=== PATIENT | male | born 1950 ===

== ENCOUNTER 2018-11-27 18:53 | Inpatient (IN) | payer MEDICARE, OTHER ==
[2018-11-27 18:54] VITALS: BMI 22.6
[2018-11-27] MEDS ORDERED: Vancomycin 1 g Inj ONE (20:41)
[2018-11-27] MEDS ORDERED: Piperacillin/Tazobact 4.5 GM in Sodium Chloride 0.9% 100 ML IV STA (20:45)
[2018-11-27 21:26] LABS: ALB/GLOB RATIO 1.3 (1.0-2.1); ALBUMIN 4.1 g/dL (3.5-5.0); ALT/SGPT 19 U/L (21-72); AST/SGOT 26 U/L (17-59); BLOOD UREA NITROGEN 13 mg/dl (9-20); CALCIUM 9.8 mg/dL (8.4-10.2); GFR NON-AFRICAN AMERICAN > 60
--- NOTE | 2018-11-27 21:29 | ED PDOC ---
Lower Extremity Pain/Injury Time Seen by Provider: 11/27/18 19:55 Chief Complaint (Nursing): Lower Extremity Problem/Injury Chief Complaint (Provider): Lower Extremity Problem/Injury History Per: Patient History/Exam Limitations: no limitations Onset/Duration Of Symptoms: Days (x5) Current Symptoms Are (Timing): Still Present Additional Complaint(s): 68 year old male with a history of hypertension and peripheral artery disease presents to the ED with right foot swelling and redness onset x5 days. Patient reports symptoms have been worsening since onset. A week ago, he had a fluid filled blister on his medial heel, which he popped open. Patient also developed blister with fluid on the plantar forefoot in the past x2 days. He denies any fever, chills, or injury. Patient has a left aka, which was due to his peripheral artery disease. He was seen by his PMD today who advised him to come to the ED for further evaluation. PMD: Dr. Squires Past Medical History Reviewed: Historical Data, Nursing Documentation, Vital Signs Vital Signs: Last Vital Signs Temp 98.8 F 11/27/18 19:43 Pulse 100 H 11/27/18 19:43 Resp 18 11/27/18 19:43 BP 120/50 L 11/27/18 19:43 Pulse Ox 99 11/27/18 19:43 - Medical History PMH: Anemia, Bronchitis, COPD, Emphysema, HTN Denies: Atrial Fibrillation, CAD Other PMH: peripheral artery disease, left aka, bowel obstruction - Surgical History Surgical History: - Family History Family History: States: Unknown Family Hx - Social History Current smoker - smoking cessation education provided: No - Home Medications Home Medications: Ambulatory Orders Medication Instructions Recorded Clopidogrel [Plavix] 75 mg PO DAILY 01/20/15 Cilostazol [Pletal] 100 mg PO BID 04/02/16 Ferrous Sulfate [Feosol] 325 mg PO DAILY 05/06/16 Lisinopril [Zestril] 5 mg PO DAILY 05/06/16 Metoprolol Succinate XL [Toprol XL] 25 mg PO DAILY 05/06/16 Aspirin [Ecotrin] 81 mg PO DAILY 10/17/18 Famotidine [Pepcid] 20 mg PO BID 10/17/18 Nortriptyline [Pamelor] 10 mg PO HS 10/17/18 Gabapentin [Neurontin] 300 mg PO BID 11/27/18 - Allergies Allergies/Adverse Reactions: Allergies Allergy/AdvReac Type Severity Reaction Status Date / Time No Known Allergies Allergy Verified 10/17/18 11:13 Review of Systems ROS Statement: Except As Marked, All Systems Reviewed And Found Negative Constitutional: Negative for: Fever, Chills Musculoskeletal: Positive for: Other (right foot swelling and redness with blisters) Physical Exam - Reviewed Nursing Documentation Reviewed: Yes Vital Signs Reviewed: Yes - Physical Exam Appears: Positive for: No Acute Distress Head Exam: Positive for: ATRAUMATIC, NORMOCEPHALIC Skin: Positive for: Warm, Dry Eye Exam: Positive for: EOMI, PERRL ENT: Negative for: Pharyngeal Erythema, Tonsillar Exudate Neck: Positive for: Painless ROM, Supple Cardiovascular/Chest: Positive for: Regular Rate, Rhythm. Negative for: Murmur Respiratory: Positive for: Normal Breath Sounds. Negative for: Respiratory Distress Gastrointestinal/Abdominal: Positive for: Soft. Negative for: Tenderness Back: Positive for: Normal Inspection. Negative for: Decreased ROM Extremity: Positive for: Capillary Refill (less than 2 seconds), Other (Right foot: dorsum for forefoot demonstrates dark erythema extending from the 3rd, 4th, and 5th digists with diffuse edema; plantar forefoot demonstrates large yellow callus with pin point area expressing serosanguinous fluid; dried healed blister to medial heel; light touch intact ) Lymphatic: Negative for: Adenopathy Neurological/Psych: Positive for: Awake, Alert. Negative for: Motor/Sensory Deficits - Laboratory Results Result Diagrams: 11/27/18 21:09 11/27/18 21:09 Lab Results: Total Bilirubin 0.3 mg/dl (0.2-1.3) 11/27/18 21:09 AST 26 U/L (17-59) 11/27/18 21:09 ALT 19 U/L (21-72) L D 11/27/18 21:09 Alkaline Phosphatase 80 U/L (38-126) 11/27/18 21:09 Total Protein 7.2 G/DL (6.3-8.2) 11/27/18 21:09 Albumin 4.1 g/dL (3.5-5.0) 11/27/18 21:09 Globulin 3.2 gm/dL (2.2-3.9) 11/27/18 21:09 Albumin/Globulin Ratio 1.3 (1.0-2.1) 11/27/18 21:09 - ECG O2 Sat by Pulse Oximetry: 99 (RA) Pulse Ox Interpretation: Normal Medical Decision Making Medical Decision Making: Time: 2017 Impression: right foot infection Differential diagnoses include but are not limited to: cellulitis, osteomyelitis, peripheral artery occlusion, and sepsis --Discussed with ELYSE Maxwell. Patient to be admitted for IV antibiotics. Case discussed with podiatry resident, orders placed as per discussion. 22:50 US DVT RLE FINDINGS: DEEP VEINS: The common femoral, superficial femoral, and popliteal veins are echolucent and compressible. There is normal color Doppler flow throughout. The visualized calf veins appear patent. SUPERFICIAL VEINS: The visualized greater saphenous vein is patent. SOFT TISSUES: No popliteal fossa cyst or other abnormalities. IMPRESSION: No deep venous thrombosis evident on right lower extremity examination. 22:51 CT right foot FINDINGS: BONES: No acute fracture is evident. No aggressive appearing osseous lesion. No periosteal reaction evident. A 4.5 mm calcaneal spur is noted arising from the plantar aspect. JOINTS: The joint spaces appear within normal limits. No dislocation. SOFT TISSUES: No radiopaque foreign body is seen. No soft tissue fluid collection. No subcutaneous gas collection identified. IMPRESSION: 1. 4.5 mm calcaneal spur. 2. No acute abnormality evident on examination of the right foot. 22:51 CT right leg FINDINGS: BONES: No acute fracture is evident. No aggressive appearing osseous lesion. No periosteal reaction evident. JOINTS: The joint spaces appear within normal limits. No dislocation. SOFT TISSUES: No radiopaque foreign body is seen. No soft tissue fluid collection. No subcutaneous gas detected. IMPRESSION: No acute abnormality evident on examination of the right tibia and fibula. 23:06 US RLE Arterial COMMENTS: At the right BLOCK STACKER level systolic velocities are 123.2 cm/sec with bilateral waveform. At the right SFA level systolic velocities are 74.2 cm/sec at proximal segment, 66.9 cm/sec at mid segment and 98.1 cm/sec at distal segment with monophasic waveform. At the right POP level systolic velocities are 51.5 cm/sec with monophasic waveform. At the right RV SERVICER level systolic velocities are 59.2 cm/sec with monophasic waveform. At the right CORNELIUS level systolic velocities are 71 cm/sec with monophasic wav eform. The right dorsalis pedis artery is not visualized due to wound bandage. IMPRESSION: No evidence of hemodynamically significant stenosis. Scribe Attestation: Documented by Coby Cabrera, acting as a scribe for Rosario Rutherford MD. Provider Scribe Attestation: All medical record entries made by the Scribe were at my direction and personally dictated by me. I have reviewed the chart and agree that the record accurately reflects my personal performance of the history, physical exam, me dical decision making, and the department course for this patient. I have also personally directed, reviewed, and agree with the discharge instructions and disposition. Disposition - Clinical Impression Clinical Impression: PVD (peripheral vascular disease) with claudication, Cellulitis of right foot - Disposition Disposition Time: 21:00 Condition: FAIR - POA Present On Arrival: None
[2018-11-27 21:30] LABS: BASO % 0.6 % (0.0-2.0); EOS # 0.1 K/uL (0.0-0.7); EOS % 1.3 % (0.0-4.0); HEMOGLOBIN 15.9 g/dL (12.0-18.0); LYMPH # 1.6 K/uL (1.0-4.3); LYMPH % 18.1 % (20.0-40.0); MEAN CELL VOLUME 95.2 fl (80.0-94.0); MEAN CORPUSCULAR HEMOGLOBIN 31.6 pg (27.0-31.0); MEAN CORPUSCULAR HGB CONC 33.2 g/dL (33.0-37.0); MEAN PLATELET VOLUME 9.1 fl (7.2-11.7); MONO # 0.8 K/uL (0.0-0.8); NEUT # 6.3 K/uL (1.8-7.0); RBC 5.03 Mil/uL (4.40-5.90); RED CELL DISTRIBUTION WIDTH 14.7 % (11.5-14.5); WHITE BLOOD COUNT 8.9 K/uL (4.8-10.8)
[2018-11-27 21:33] LABS: PROTHROMBIN TIME 10.9 Seconds (9.8-13.1)
[2018-11-27 21:35] LABS: PARTIAL THROMBOPLASTIN TIME 33.3 Seconds (25.6-37.1)
--- NOTE | 2018-11-27 22:15 | CP.PCM.CON ---
History of Present Illness - History of Present Illness History of Present Illness: Podiatry consult note for attending Dr Goetz: 68 y/o M w/ PMHx of HTN, duodenal ulcers, AKA RLE, PVD, COPD, SBO referred to ED from Dr. Squires for right foot infection, cellulitis and abscess. Patient states that a month ago he developed blister on the side of his right heel and the bottom of his right foot. He states that it started to get painful specially the one underneath his foot. He states that today he started to note redness at the 2nd, 3rd and 4th right toes. Patient denies any trauma to his right foot. He can't recall stepping on any foreign body. Patient denies any recent fever, chills, headache, chest pain, SOB, urinary/bowel changes, numbness or tingling in his right LE. PMHx: HTN, duodenal ulcers, left AKA, PVD, COPD, SBO PSH: Left AKA, Left inguinal hernia repair, ANGIOGRAMS. STENT RIGHT LEG. LEFT NECK surgery. Allergies: NKDA Social: Tobacco smoker 5 cigarettes/day,denies EtOH/illicit drugs use. Review of Systems - Review of Systems Review of Systems: As Per HPI - Constitutional Constitutional: As Per HPI Past Patient History - Infectious Disease Hx of Infectious Diseases: None - Tetanus Immunizations Tetanus Immunization: Unknown - Past Medical History & Family History Past Medical History?: Yes - Past Social History Smoking Status: Former Smoker - CARDIAC Hx Atrial Fibrillation: No Hx Hypertension: Yes - PULMONARY Hx Bronchitis: Yes Hx Chronic Obstructive Pulmonary Disease (COPD): Yes Hx Emphysema: Yes - HEMATOLOGICAL/ONCOLOGICAL Hx Anemia: Yes - INTEGUMENTARY Hx Dermatological Problems: Yes Other/Comment: LIPOMA POSTERIOR NECK - GASTROINTESTINAL Hx Ulcer: Yes - SURGICAL HISTORY Other/Comment: ANGIOGRAMS. STENT RIGHT LEG - ANESTHESIA Hx Anesthesia: Yes Hx Anesthesia Reactions: No Hx Malignant Hyperthermia: No Meds Allergies/Adverse Reactions: Allergies Allergy/AdvReac Type Severity Reaction Status Date / Time No Known Allergies Allergy Verified 10/17/18 11:13 Physical Exam - Constitutional Appears: Well, No Acute Distress - Head Exam Head Exam: ATRAUMATIC, NORMOCEPHALIC - Extremities Exam Additional comments: Right lower extremity focused exam: Left AKA Vascular: DP 1/4, PT 2/4 , Cap refill < 3 seconds to all digits, Temp gradient warm to warm from proximal to distal, Mild non pitting edema noted to the right forefoot. Neuro: Gross sensation intact. Derm: A blister noted submet 3 and 4 draining pus with positive malodor after deroofing of the blister an ulcer noted measuring 1.8 cm X 1.0 cm X 0.1 cm. Base is granular fibrotic. Positive purulent malodorous drainage noted. No tracking, No undermining, No probe to bone. Positive riccardo-ulcerative erythema noted. Another blister noted on the medial side of the heel, intact. After deroofing of the blister an ulcer noted measuring 1.0 cm X 0.6 cm X 0.1 cm. Base is granular fibrotic. Mild positive purulent malodorous drainage noted. No tracking, No undermining, No probe to bone. Positive riccardo-ulcerative erythema noted. MSK: Muscle power 5/5 to all groups, Pain noted on palpating the plantar riccardo- ulcerative areas. - Neurological Exam Neurological exam: Alert, Oriented x3 - Psychiatric Exam Psychiatric exam: Normal Affect, Normal Mood Results - Vital Signs Recent Vital Signs: Last Vital Signs Temp 98.8 F 11/27/18 19:43 Pulse 100 H 11/27/18 19:43 Resp 18 11/27/18 19:43 BP 120/50 L 11/27/18 19:43 Pulse Ox 99 11/27/18 21:32 - Labs Result Diagrams: 11/27/18 21:09 11/27/18 21:09 Labs: Laboratory Results - last 24 hr 11/27/18 11/27/18 11/27/18 20:21 21:09 21:09 WBC 8.9 RBC 5.03 Hgb 15.9 Hct 47.9 MCV 95.2 H D MCH 31.6 H MCHC 33.2 RDW 14.7 H Plt Count 189 D MPV 9.1 Neut % (Auto) 71.0 Lymph % (Auto) 18.1 L [place] % (Auto) 9.0 Eos % (Auto) 1.3 Baso % (Auto) 0.6 Neut # (Auto) 6.3 Lymph # (Auto) 1.6 [place] # (Auto) 0.8 Eos # (Auto) 0.1 Baso # (Auto) 0.0 PT INR APTT Sodium 141 Potassium 3.9 Chloride 100 Carbon Dioxide 27 Anion Gap 18 BUN 13 Creatinine 1.0 Est GFR ( Amer) > 60 Est GFR (Non-Af Amer) > 60 POC Glucose (mg/dL) 105 Random Glucose 83 Lactic Acid Calcium 9.8 Total Bilirubin 0.3 AST 26 ALT 19 L D Alkaline Phosphatase 80 Total Protein 7.2 Albumin 4.1 Globulin 3.2 Albumin/Globulin Ratio 1.3 11/27/18 11/27/18 21:09 21:11 WBC RBC Hgb Hct MCV MCH MCHC RDW Plt Count MPV Neut % (Auto) Lymph % (Auto) [place] % (Auto) Eos % (Auto) Baso % (Auto) Neut # (Auto) Lymph # (Auto) [place] # (Auto) Eos # (Auto) Baso # (Auto) PT 10.9 INR 1.0 APTT 33.3 Sodium Potassium Chloride Carbon Dioxide Anion Gap BUN Creatinine Est GFR ( Amer) Est GFR (Non-Af Amer) POC Glucose (mg/dL) Random Glucose Lactic Acid 1.0 Calcium Total Bilirubin AST ALT Alkaline Phosphatase Total Protein Albumin Globulin Albumin/Globulin Ratio Assessment & Plan - Assessment and Plan (Free Text) Assessment: 68 y/o M w/ PMHx of HTN, duodenal ulcers, AKA RLE, PVD, COPD, SBO seen and evaluated in the ED for right foot infection, cellulitis and abscess. Plan: Patient seen and evaluated at the ED. Discussed in detail with Dr. Goetz Charts, labs and vitals reviewed; Afebrile, WBC 8.9. Wound culture collected and sent to lab. ESR/CRP; Pending Right foot 3 views X-ray Ordered R LE VEL/PVR ordered. R LE CT scan; Pending report. B/L LE venous duplex ordered B/L ulcers cleaned with betadine then dressed with bacitracin and DSD Ordered bactroban to be added to the dressing starting tomorrow. Using sterile suture removal kit ulcers deroofed, Plantar ulcer expressed about 2 cc of thick pus. Patient received stat dose of IV abx in the ED Patient will be admitted by Dr Squires. Thank you for the consult. Podiatry will follow up the patient while in house. - Date & Time Date: 11/27/18 Time: 22:26
--- NOTE | 2018-11-28 08:26 | CARD ---
APPROVED REPORT Date of service: 11/27/2018 EKG Measurement Heart [id number] <Conclusion> Sinus bradycardia Possible Left atrial enlargement Borderline ECG
--- NOTE | 2018-11-28 08:58 | CP.PCM.HP ---
<Sonam Glez - Last Filed: 11/28/18 13:36> History of Present Illness - History of Present Illness History of Present Illness: 66yo M w/ PMHx of HTN, PUD, AKA (Left), PVD, COPD, SBO (s/p R hemicolectomy) presents for evaluation of worsening R. foot pain, swelling, and redness for the past 5 days. States it started as a blister which ruptured and since then the swelling and redness has continued to progress. He denies fever/chills, hx of trauma or insect bite. PMD: Dr. Squires Present on Admission - Present on Admission Any Indicators Present on Admission: No History of DVT/PE: No History of Uncontrolled Diabetes: No Urinary Catheter: No Decubitus Ulcer Present: No Past Patient History - Infectious Disease Hx of Infectious Diseases: None - Tetanus Immunizations Tetanus Immunization: Unknown - Past Medical History & Family History Past Medical History?: Yes - Past Social History Smoking Status: cigar - CARDIAC Hx Cardiac Disorders: Yes Hx Atrial Fibrillation: No Hx Hypertension: Yes - PULMONARY Hx Respiratory Disorders: Yes Hx Bronchitis: Yes Hx Chronic Obstructive Pulmonary Disease (COPD): Yes Hx Emphysema: Yes - NEUROLOGICAL Hx Neurological Disorder: No - HEENT Hx HEENT Problems: Yes Other/Comment: wears glasses - RENAL Hx Chronic Kidney Disease: No - ENDOCRINE/METABOLIC Hx Endocrine Disorders: No - HEMATOLOGICAL/ONCOLOGICAL Hx Blood Disorders: Yes Hx Anemia: Yes - INTEGUMENTARY Hx Dermatological Problems: Yes Other/Comment: LIPOMA POSTERIOR NECK - MUSCULOSKELETAL/RHEUMATOLOGICAL Hx Musculoskeletal Disorders: No Hx Falls: No - GASTROINTESTINAL Hx Gastrointestinal Disorders: Yes Hx Ulcer: Yes Other/Comment: Hx SBO - GENITOURINARY/GYNECOLOGICAL Hx Genitourinary Disorders: No - PSYCHIATRIC Hx Psychophysiologic Disorder: No Hx Substance Use: No - SURGICAL HISTORY Hx Surgeries: Yes Other/Comment: ANGIOGRAMS. STENT RIGHT LEG. Neck surgery - ANESTHESIA Hx Anesthesia: Yes Hx Anesthesia Reactions: No Hx Malignant Hyperthermia: No Meds Allergies/Adverse Reactions: Allergies Allergy/AdvReac Type Severity Reaction Status Date / Time No Known Allergies Allergy Verified 10/17/18 11:13 Physical Exam - Constitutional Appears: No Acute Distress - Head Exam Head Exam: NORMAL INSPECTION - Eye Exam Eye Exam: Normal appearance - ENT Exam ENT Exam: Mucous Membranes Moist - Respiratory Exam Respiratory Exam: Clear to Auscultation Bilateral - Cardiovascular Exam Cardiovascular Exam: REGULAR RHYTHM - Extremities Exam Additional comments: R. Foot diffuse erythema on dorsum from 3rd to 4th digit w/ minimal serosang discharge noted. sensation reduced, poor DP pulse +1, capillary refill<2 sec Results - Vital Signs Recent Vital Signs: Last Vital Signs Temp 98.0 F 11/28/18 07:52 Pulse 57 L 11/28/18 07:52 Resp 19 11/28/18 07:52 BP 125/72 11/28/18 07:52 Pulse Ox 97 11/28/18 07:52 - Labs Result Diagrams: 11/27/18 21:09 11/27/18 21:09 Labs: Laboratory Results - last 24 hr 11/27/18 11/27/18 11/27/18 20:21 21:00 21:09 WBC 8.9 RBC 5.03 Hgb 15.9 Hct 47.9 MCV 95.2 H D MCH 31.6 H MCHC 33.2 RDW 14.7 H Plt Count 189 D MPV 9.1 Neut % (Auto) 71.0 Lymph % (Auto) 18.1 L [place] % (Auto) 9.0 Eos % (Auto) 1.3 Baso % (Auto) 0.6 Neut # (Auto) 6.3 Lymph # (Auto) 1.6 [place] # (Auto) 0.8 Eos # (Auto) 0.1 Baso # (Auto) 0.0 ESR 6 PT INR APTT Sodium Potassium Chloride Carbon Dioxide Anion Gap BUN Creatinine Est GFR ( Amer) Est GFR (Non-Af Amer) POC Glucose (mg/dL) 105 Random Glucose Lactic Acid Calcium Total Bilirubin AST ALT Alkaline Phosphatase Total Protein Albumin Globulin Albumin/Globulin Ratio Blood Type O NEGATIVE Antibody Screen Negative BBK History Checked Patient has bt 11/27/18 11/27/18 11/27/18 21:09 21:09 21:11 WBC RBC Hgb Hct MCV MCH MCHC RDW Plt Count MPV Neut % (Auto) Lymph % (Auto) [place] % (Auto) Eos % (Auto) Baso % (Auto) Neut # (Auto) Lymph # (Auto) [place] # (Auto) Eos # (Auto) Baso # (Auto) ESR PT 10.9 INR 1.0 APTT 33.3 Sodium 141 Potassium 3.9 Chloride 100 Carbon Dioxide 27 Anion Gap 18 BUN 13 Creatinine 1.0 Est GFR ( Amer) > 60 Est GFR (Non-Af Amer) > 60 POC Glucose (mg/dL) Random Glucose 83 Lactic Acid 1.0 Calcium 9.8 Total Bilirubin 0.3 AST 26 ALT 19 L D Alkaline Phosphatase 80 Total Protein 7.2 Albumin 4.1 Globulin 3.2 Albumin/Globulin Ratio 1.3 Blood Type Antibody Screen BBK History Checked Assessment & Plan - Assessment and Plan (Free Text) Assessment: 66yo M w/ PMHx of HTN, PUD w/ duodenal ulcers, AKA, PVD, COPD, SBO admitted for R. Foot Cellulitis and abscess. No osteomyelitis on imaging. #R. LE cellulitis/ abscess #PAD - Podiatry, ID, and Vascular consulted - F/u R. LE VEL/PVR and MRI - Vanco & Zosyn - F/u Bcx and Wcx - General Medical conditions managed as ordered Discussed with Dr. Tavia Glez, PGY2 <Colton Squires - Last Filed: 11/28/18 17:53> Results - Vital Signs Recent Vital Signs: Last Vital Signs Temp 97.8 F 11/28/18 16:25 Pulse 57 L 11/28/18 16:25 Resp 18 11/28/18 16:25 BP 112/71 11/28/18 16:25 Pulse Ox 97 11/28/18 16:25 - Labs Result Diagrams: 11/27/18 21:09 11/27/18 21:09 Labs: Laboratory Results - last 24 hr 11/27/18 11/27/18 11/27/18 20:21 21:00 21:09 WBC 8.9 RBC 5.03 Hgb 15.9 Hct 47.9 MCV 95.2 H D MCH 31.6 H MCHC 33.2 RDW 14.7 H Plt Count 189 D MPV 9.1 Neut % (Auto) 71.0 Lymph % (Auto) 18.1 L [place] % (Auto) 9.0 Eos % (Auto) 1.3 Baso % (Auto) 0.6 Neut # (Auto) 6.3 Lymph # (Auto) 1.6 [place] # (Auto) 0.8 Eos # (Auto) 0.1 Baso # (Auto) 0.0 ESR 6 PT INR APTT Sodium Potassium Chloride Carbon Dioxide Anion Gap BUN Creatinine Est GFR ( Amer) Est GFR (Non-Af Amer) POC Glucose (mg/dL) 105 Random Glucose Lactic Acid Calcium Total Bilirubin AST ALT Alkaline Phosphatase C-Reactive Protein Total Protein Albumin Globulin Albumin/Globulin Ratio Blood Type O NEGATIVE Antibody Screen Negative BBK History Checked Patient has bt 11/27/18 11/27/18 11/27/18 21:09 21:09 21:11 WBC RBC Hgb Hct MCV MCH MCHC RDW Plt Count MPV Neut % (Auto) Lymph % (Auto) [place] % (Auto) Eos % (Auto) Baso % (Auto) Neut # (Auto) Lymph # (Auto) [place] # (Auto) Eos # (Auto) Baso # (Auto) ESR PT 10.9 INR 1.0 APTT 33.3 Sodium 141 Potassium 3.9 Chloride 100 Carbon Dioxide 27 Anion Gap 18 BUN 13 Creatinine 1.0 Est GFR ( Amer) > 60 Est GFR (Non-Af Amer) > 60 POC Glucose (mg/dL) Random Glucose 83 Lactic Acid 1.0 Calcium 9.8 Total Bilirubin 0.3 AST 26 ALT 19 L D Alkaline Phosphatase 80 C-Reactive Protein 17.10 H Total Protein 7.2 Albumin 4.1 Globulin 3.2 Albumin/Globulin Ratio 1.3 Blood Type Antibody Screen BBK History Checked
--- NOTE | 2018-11-28 09:15 | RAD ---
Date of service: 11/27/2018 HISTORY: infection COMPARISON: Portable chest 05/06/2016. FINDINGS: LUNGS: No acute airspace disease bilaterally. Trace fibrotic changes right apex once again. PLEURA: No significant pleural effusion identified, no pneumothorax apparent. CARDIOVASCULAR: No aortic atherosclerotic calcification present. Normal cardiac size. No pulmonary vascular congestion. OSSEOUS STRUCTURES: No significant abnormalities. VISUALIZED UPPER ABDOMEN: Normal. OTHER FINDINGS: None. IMPRESSION: No interval acute cardiopulmonary disease appreciated.
[2018-11-28] MEDS: Cilostazol 100 mg Tab UD PO SCH ×2 (09:18→18:11)
--- NOTE | 2018-11-28 09:19 | RAD ---
Date of service: 11/27/2018 PROCEDURE: Right Foot Radiographs. HISTORY: foot infection COMPARISON: None. FINDINGS: BONES: Diffuse osteopenia suggests osteoporosis. No acute fracture or destructive bony lesion identified. JOINTS: No subluxation or dislocation throughout the right foot. However, there is joint space narrowing and articular cortical sclerosis throughout the interphalangeal joints diffusely compatible with degenerative joint disease on a [id number] basis. Lesser similar changes are present at the midfoot articulations diffusely as well as the hindfoot. Minimal plantar calcaneal spur noted. SOFT TISSUES: Normal. OTHER FINDINGS: None. IMPRESSION: No emphysema soft tissue changes or retained radiodense foreign body. No suspicious fatty changes to suggest cellulitis focally. Degenerative joint changes are identified throughout the right foot as discussed above on a [id number] basis. Diffuse osteopenia suggests osteoporosis.
[2018-11-28] MEDS: Metoprolol Succinate 25 mg XL Tab PO SCH (09:20)
--- NOTE | 2018-11-28 10:08 | US ---
Date of service: 11/27/2018 PROCEDURE: Right lower extremity venous duplex Doppler. HISTORY: foot infection and swelling COMPARISON: None available. TECHNIQUE: Common femoral, superficial femoral, popliteal and posterior tibial veins were evaluated. Flow was assessed with color Doppler, compressibility, assessment of phasic flow and augmentation response. FINDINGS: COMMON FEMORAL VEIN: Unremarkable. SUPERFICIAL FEMORAL VEIN: Unremarkable. POPLITEAL VEIN: Unremarkable. POSTERIOR TIBIAL VEIN: Unremarkable. OTHER FINDINGS: None. IMPRESSION: No evidence of deep venous thrombosis in the right lower extremity. Preliminary impression was provided by [employer].
--- NOTE | 2018-11-28 11:24 | CT ---
Date of service: 11/27/2018 PROCEDURE: RIGHT FOOT CT WITHOUT CONTRAST HISTORY: RIGHT foot infection r/o gas nec/fasc COMPARISON: Right foot radiographs 11/27/2018. TECHNIQUE: A volumetric CT acquisition through the right foot was performed without intravenous contrast as requested. Reformatted dataset provided multiple projections by various algorithms. Radiation dose:Total exam DLP = 272.53 mGy-cm. This CT exam was performed using one or more of the following dose reduction techniques: Automated exposure control, adjustment of the mA and/or kV according to patient size, and/or use of iterative reconstruction technique. FINDINGS: Evaluation of soft tissues reveals mild plantar greater than dorsal soft tissue edema also affecting the ankle soft tissues peripherally. No emphysema soft tissue changes are appreciated and no retained radiodense foreign bodies identified either. No fracture or destructive bony lesion is appreciated. There is no definitive periosteal reaction appreciated to favored osteomyelitis or other infectious/inflammatory process local to the osseous elements throughout the right foot. No subluxation or dislocation is identified. IMPRESSION: Limited plantar cellulitis is appreciated more so than at the dorsal right foot soft tissues. No fracture, destructive bony lesion, subluxation or dislocation apparent. No emphysema soft tissue change or retained radiodense foreign body evident. Preliminary report provided by Manjinder, 11/27/2018, 10:51 p.m..
--- NOTE | 2018-11-28 11:31 | CT ---
Date of service: 11/27/2018 PROCEDURE: RIGHT TIBIA FIBULA CT WITHOUT CONTRAST HISTORY: RIGHT tib/fib r/o gas COMPARISON: None available. TECHNIQUE: A volumetric CT acquisition through the right tibia and fibula has been performed without intravenous contrast. Reformatted dataset provided multiple projections using various algorithms. Radiation dose:Total exam DLP = 572.17 mGy-cm. This CT exam was performed using one or more of the following dose reduction techniques: Automated exposure control, adjustment of the mA and/or kV according to patient size, and/or use of iterative reconstruction technique. FINDINGS: No fracture or destructive bony lesions appreciated throughout the right tibia and fibula. There is no periosteal reaction appreciated either. Local soft tissues reflect mild lateral subcutaneous reactive change primarily proximal to mid antral lateral subcutaneous fat. No fluid collection is appreciated or retained radiodense foreign body. Are only borderline similar changes at the medial anterior subcutaneous fat. No related emphysematous changes in the pattern reflects only limited cellulitis. This limited pattern of cellulitis is felt unlikely to reflect fasciitis type pattern however this is a clinical diagnosis and further clinical evaluation is required. Density throughout the muscles is grossly nonfocal. Occasional vascular calcifications are identified posteriorly at the calf level versus muscular calcification. No apparent subluxation or dislocation at the visualized right knee or right ankle. IMPRESSION: Limited anterior and medial cellulitis affecting the upper and mid leg subcutaneous fat without emphysematous change or retained radiodense foreign body. No pertinent bony findings at this time including fracture or destructive bony lesion right leg. Further clinical correlation advised. Preliminary report provided by Manjinder, 11/27/2018, 10:51 p.m..
[2018-11-28] MEDS: Piperacillin/Tazobact 3.375 GM in Sodium Chloride 0.9% 100 ML IVPB SCH ×2 (13:17→18:16)
--- NOTE | 2018-11-28 16:00 | CP.PCM.PN ---
Subjective - Date & Time of Evaluation Date of Evaluation: 11/28/18 Time of Evaluation: 16:00 - Subjective Subjective: Podiatry Progress Note: Dr. Goetz 68 year old male patient seen and evaluated for R foot bullae with cellulitis. Patient resting comfortbaly and in NAD. Patient states that he does not have any pain to his right foot today. Denies nausea/vomiting/fever/chills. Objective - Vital Signs/Intake and Output Vital Signs (last 24 hours): Temp Pulse Resp BP Pulse Ox 98.0 F 57 L 19 125/72 97 11/28/18 07:52 11/28/18 09:20 11/28/18 07:52 11/28/18 09:20 11/28/18 07:52 - Medications Medications: Current Medications Aspirin (Ecotrin) 81 mg PO DAILY [facility] Last Admin: 11/28/18 09:30 Dose: 81 mg Cilostazol (Pletal) 100 mg PO BID [facility] Last Admin: 11/28/18 09:18 Dose: 100 mg Clopidogrel Bisulfate (Plavix) 75 mg PO DAILY [facility] Last Admin: 11/28/18 09:26 Dose: 75 mg Famotidine (Pepcid) 20 mg PO BID [facility] Last Admin: 11/28/18 09:26 Dose: 20 mg Ferrous Sulfate (Feosol) 325 mg PO DAILY [facility] Last Admin: 11/28/18 09:26 Dose: 325 mg Gabapentin (Neurontin) 300 mg PO BID [facility] Last Admin: 11/28/18 09:19 Dose: 300 mg Heparin Sodium (Porcine) (Heparin) 5,000 units SC Q8 [facility]; Protocol Last Admin: 11/28/18 09:19 Dose: 5,000 units Sodium Chloride (Sodium Chloride 0.45%) 1,000 mls @ 70 mls/hr IV .[id number] [facility] Stop: 11/29/18 05:35 Vancomycin HCl 1 gm/ Sodium (Chloride) 250 mls @ 166.667 mls/hr IVPB Q12 [facility]; Protocol Last Admin: 11/28/18 13:14 Dose: 166.667 mls/hr Piperacillin Sod/Tazobactam (Sod 3.375 gm/ Sodium Chloride) 100 mls @ 100 mls/hr IVPB Q8 [facility]; Protocol Last Admin: 11/28/18 13:17 Dose: 100 mls/hr Lisinopril (Zestril) 5 mg PO DAILY [facility] Last Admin: 11/28/18 09:19 Dose: Not Given Metoprolol Succinate (Toprol Xl) 25 mg PO DAILY [facility] Last Admin: 11/28/18 09:20 Dose: Not Given Mupirocin (Bactroban Ointment) 1 applic TOP BID [facility] Nortriptyline HCl (Pamelor) 10 mg PO HS [facility] - Labs Labs: 11/27/18 21:09 11/27/18 21:09 PT 10.9 Seconds (9.8-13.1) 11/27/18 21:09 INR 1.0 11/27/18 21:09 APTT 33.3 Seconds (25.6-37.1) 11/27/18 21:09 - Constitutional Appears: Non-toxic, No Acute Distress - Head Exam Head Exam: ATRAUMATIC, NORMOCEPHALIC - Extremities Exam Additional comments: RLE focused exam, L AKA: Vascular: DP 1/4, PT 2/4 , Cap refill < 3 seconds to all digits, Temp gradient warm to warm from proximal to distal, Mild non pitting edema noted to the right forefoot. Ortho: Muscle power 5/5 to all groups, no pain with calf compression Neuro: Gross sensation intact, protective sensation diminished Derm: Drained bullae appreciated submet 3 and 4 measuring approximately 1.5 x 1.0 x.1 cm. No drainage today, no undermining, no tunneling, no tracking, no probe to bone. No additional lesions noted at this time. - Neurological Exam Neurological Exam: Alert, Awake, Oriented x3 - Psychiatric Exam Psychiatric exam: Normal Affect, Normal Mood Assessment and Plan - Assessment and Plan (Free Text) Assessment: 68M with PMHx of HTN, AKA RLE, PVD, COPD with R foot bullae with cellulitis. Plan: Patient seen and evaluated Discussed in detail with Dr. Goetz Charts, labs and vitals reviewed; Afebrile, WBC 8.9. Wound culture; Pending ESR/CRP; Pending Right foot 3 views X-ray; no emphysema soft tissue changes. Diffuse osteopenia suggests osteoporosis R LE VEL/PVR ordered. R LE CT scan; Anterior and medial cellulitis affecting upper and mid leg subctaneous fat without emphysematous changes. Limited plantar celluilitis is appreicated more so than at the dorsal R foot. No fracture, destructive bony lesion, subluxation or dislocation. R LE venous duplex ordered; no evidence of DVT Foot stable from podiatry standpoint at this time, f/u vasc reccs Local wound care with bactroban Will continue to follow
--- NOTE | 2018-11-28 16:43 | US ---
Date of service: 11/27/2018 PROCEDURE: Duplex ultrasound of the right lower extremity arteries. HISTORY: foot infection and swelling COMPARISON: Bilateral lower extremity arterial ultrasound 06/26/2015. TECHNIQUE: Grayscale and duplex Doppler evaluation of the right common femoral, superficial femoral, popliteal, posterior tibial and dorsalis pedis arteries was performed. FINDINGS: COMMON FEMORAL ARTERY: Patent with triphasic spectral waveform maximal flow velocity of 123.2 cm/s. No significant stenosis. SUPERFICIAL FEMORAL ARTERY: Spontaneous color Doppler blood flow is identified however waveform convert 2 monophasic suggesting severe stenosis primary or collateralized blood flow in the lumen. Maximal flow velocity of 74.2 cm/s. POPLITEAL ARTERY: Spontaneous color Doppler blood flow is identified however waveform convert 2 monophasic suggesting severe stenosis primary or collateralized blood flow in the lumen. Maximal flow velocity of 51.5 cm/s. POSTERIOR TIBIAL ARTERY: Spontaneous color Doppler blood flow is identified however waveform convert 2 monophasic suggesting severe stenosis primary or collateralized blood flow in the lumen. Maximal flow velocity of 59.2 cm/s. ANTERIOR TIBIAL ARTERY: Spontaneous color Doppler blood flow is identified however waveform convert 2 monophasic suggesting severe stenosis primary or collateralized blood flow in the lumen. Maximal flow velocity of 71.0 cm/s. DORSALIS PEDIS ARTERY: Not identified due to overlying bandage material. OTHER FINDINGS: None. IMPRESSION: No significant stenosis right common femoral artery. Arterial disease is seen throughout the remainder of the right lower extremity including right SFA, popliteal and posterior tibial arteries which exhibit monophasic blood flow either primarily or on a collateralized spaces. Although no definite complete occlusion is identified without collateralization, findings reflect a significant worsening of arterial disease at the right lower extremity in the interval. Consider follow-up CT angiography of the right lower extremity for added characterization. Findings discussed with the patient's nurse, nurse Harvey, with written down and read back verification 11/28/2018 4:25 p.m..
[2018-11-28] MEDS: Sodium Chloride 0.45% 1,000 ML IV SCH (21:59)
[2018-11-29] MEDS: Sodium Chloride 0.45% 1,000 ML IV SCH (01:23)
[2018-11-29] MEDS: Piperacillin/Tazobact 3.375 GM in Sodium Chloride 0.9% 100 ML IVPB SCH ×3 (02:15→16:50)
[2018-11-29 07:06] LABS: BASO % 0.6 % (0.0-2.0); EOS # 0.2 K/uL (0.0-0.7); EOS % 2.9 % (0.0-4.0); HEMOGLOBIN 15.2 g/dL (12.0-18.0); LYMPH # 2.6 K/uL (1.0-4.3); LYMPH % 40.6 % (20.0-40.0); MEAN CELL VOLUME 94.8 fl (80.0-94.0); MEAN CORPUSCULAR HGB CONC 33.7 g/dL (33.0-37.0); MEAN PLATELET VOLUME 8.8 fl (7.2-11.7); MONO # 0.5 K/uL (0.0-0.8); MONO % 8.5 % (0.0-10.0); NEUT # 3.1 K/uL (1.8-7.0); NEUT % 47.4 % (50.0-75.0); NRBC % 0.3 % (0.0-0.0); RBC 4.76 Mil/uL (4.40-5.90); RED CELL DISTRIBUTION WIDTH 14.6 % (11.5-14.5); WHITE BLOOD COUNT 6.5 K/uL (4.8-10.8)
--- NOTE | 2018-11-29 07:22 | CP.PCM.PN ---
Subjective - Date & Time of Evaluation Date of Evaluation: 11/29/18 Time of Evaluation: 07:22 - Subjective Subjective: Podiatry Progress Note: Dr. Goetz 68 year old male patient seen and evaluated for R foot bullae with cellulitis; cellulitis improving. Patient resting comfortbaly and in NAD. He denies any pain to his R foot at this time. Denies nausea/vomiting/fever/chills. Objective - Vital Signs/Intake and Output Vital Signs (last 24 hours): Temp Pulse Resp BP Pulse Ox 97.3 F L 54 L 20 114/68 95 11/28/18 23:51 11/28/18 23:51 11/28/18 23:51 11/28/18 23:51 11/28/18 23:51 - Medications Medications: Current Medications Aspirin (Ecotrin) 81 mg PO DAILY [facility] Last Admin: 11/28/18 09:30 Dose: 81 mg Cilostazol (Pletal) 100 mg PO BID [facility] Last Admin: 11/28/18 18:11 Dose: 100 mg Clopidogrel Bisulfate (Plavix) 75 mg PO DAILY [facility] Last Admin: 11/28/18 09:26 Dose: 75 mg Famotidine (Pepcid) 20 mg PO BID [facility] Last Admin: 11/28/18 18:16 Dose: 20 mg Ferrous Sulfate (Feosol) 325 mg PO DAILY [facility] Last Admin: 11/28/18 09:26 Dose: 325 mg Gabapentin (Neurontin) 300 mg PO BID [facility] Last Admin: 11/28/18 18:11 Dose: 300 mg Heparin Sodium (Porcine) (Heparin) 5,000 units SC Q8 [facility]; Protocol Last Admin: 11/29/18 01:15 Dose: 5,000 units Piperacillin Sod/Tazobactam (Sod 3.375 gm/ Sodium Chloride) 100 mls @ 100 mls/hr IVPB Q8 [facility]; Protocol Last Admin: 11/29/18 02:15 Dose: 100 mls/hr Vancomycin HCl 1 gm/ Sodium (Chloride) 250 mls @ 166.667 mls/hr IVPB Q12@0100,1300 [facility]; Protocol Last Admin: 11/29/18 01:14 Dose: 166.667 mls/hr Lisinopril (Zestril) 5 mg PO DAILY [facility] Last Admin: 11/28/18 09:19 Dose: Not Given Metoprolol Succinate (Toprol Xl) 25 mg PO DAILY [facility] Last Admin: 11/28/18 09:20 Dose: Not Given Mupirocin (Bactroban Ointment) 1 applic TOP BID [facility] Last Admin: 11/28/18 18:17 Dose: 1 applic Nortriptyline HCl (Pamelor) 10 mg PO HS [facility] Last Admin: 11/28/18 21:57 Dose: 10 mg - Labs Labs: 11/29/18 06:40 11/27/18 21:09 PT 10.9 Seconds (9.8-13.1) 11/27/18 21:09 INR 1.0 11/27/18 21:09 APTT 33.3 Seconds (25.6-37.1) 11/27/18 21:09 - Constitutional Appears: Non-toxic, No Acute Distress - Head Exam Head Exam: ATRAUMATIC, NORMOCEPHALIC - Extremities Exam Additional comments: RLE focused exam, L AKA: Vascular: DP 1/4, PT 2/4 , Cap refill < 3 seconds to all digits, Temp gradient warm to warm from proximal to distal, Mild non pitting edema noted to the right forefoot. Ortho: Muscle power 5/5 to all groups, no pain with calf compression Neuro: Gross sensation intact, protective sensation diminished Derm: Drained bullae appreciated submet 3 and 4 measuring approximately 1.5 x 1.0 x.1 cm. Additional drained bullae appreciated to heel. No drainage, no undermining, no tunneling, no tracking, no probe to bone. No additional lesions noted at this time. - Neurological Exam Neurological Exam: Alert, Awake, Oriented x3 - Psychiatric Exam Psychiatric exam: Normal Affect, Normal Mood Assessment and Plan - Assessment and Plan (Free Text) Assessment: 68M with PMHx of HTN, AKA RLE, PVD, COPD with R foot bullae with cellulitis; improving. Plan: Patient seen and evaluated Discussed in detail with Dr. Goetz Charts, labs and vitals reviewed; Afebrile, WBC 6.5, ESR 6, CRP 17 Wound culture; Gram + Cocci Right foot 3 views X-ray; no emphysema soft tissue changes. Diffuse osteopenia suggests osteoporosis R LE VEL/PVR; no significant stenosis R common femoral artery. Arterial disease is seen throughout the RLE including SFA. R LE CT scan; Anterior and medial cellulitis affecting upper and mid leg subctaneous fat without emphysematous changes. Limited plantar celluilitis is appreicated more so than at the dorsal R foot. No fracture, destructive bony lesion, subluxation or dislocation. R LE venous duplex ordered; no evidence of DVT LE MRI Local wound care with bactroban Foot stable from podiatry standpoint at this time, no surgical intervention, f/u vasc reccs Will continue to follow
[2018-11-29] MEDS: Metoprolol Succinate 25 mg XL Tab PO SCH (09:07)
[2018-11-29] MEDS: Cilostazol 100 mg Tab UD PO SCH ×2 (09:07→16:45)
--- NOTE | 2018-11-29 11:30 | CP.PCM.PN ---
Subjective - Date & Time of Evaluation Date of Evaluation: 11/29/18 Time of Evaluation: 08:00 - Subjective Subjective: Pt seen and examined at bedside, reports RLE pain improved since yesterday. Denies fever/chills. Objective - Vital Signs/Intake and Output Vital Signs (last 24 hours): Temp Pulse Resp BP Pulse Ox 97.2 F L 57 L 18 116/69 98 11/29/18 08:26 11/29/18 08:26 11/29/18 08:26 11/29/18 08:26 11/29/18 08:26 - Medications Medications: Current Medications Aspirin (Ecotrin) 81 mg PO DAILY [facility] Last Admin: 11/28/18 09:30 Dose: 81 mg Cilostazol (Pletal) 100 mg PO BID [facility] Last Admin: 11/28/18 18:11 Dose: 100 mg Clopidogrel Bisulfate (Plavix) 75 mg PO DAILY [facility] Last Admin: 11/28/18 09:26 Dose: 75 mg Famotidine (Pepcid) 20 mg PO BID [facility] Last Admin: 11/28/18 18:16 Dose: 20 mg Ferrous Sulfate (Feosol) 325 mg PO DAILY [facility] Last Admin: 11/28/18 09:26 Dose: 325 mg Gabapentin (Neurontin) 300 mg PO BID [facility] Last Admin: 11/28/18 18:11 Dose: 300 mg Heparin Sodium (Porcine) (Heparin) 5,000 units SC Q8 [facility]; Protocol Last Admin: 11/29/18 01:15 Dose: 5,000 units Piperacillin Sod/Tazobactam (Sod 3.375 gm/ Sodium Chloride) 100 mls @ 100 mls/hr IVPB Q8 [facility]; Protocol Last Admin: 11/29/18 02:15 Dose: 100 mls/hr Vancomycin HCl 1 gm/ Sodium (Chloride) 250 mls @ 166.667 mls/hr IVPB Q12@0100,1300 [facility]; Protocol Last Admin: 11/29/18 01:14 Dose: 166.667 mls/hr Lisinopril (Zestril) 5 mg PO DAILY [facility] Last Admin: 11/28/18 09:19 Dose: Not Given Metoprolol Succinate (Toprol Xl) 25 mg PO DAILY [facility] Last Admin: 11/28/18 09:20 Dose: Not Given Mupirocin (Bactroban Ointment) 1 applic TOP BID [facility] Last Admin: 11/28/18 18:17 Dose: 1 applic Nortriptyline HCl (Pamelor) 10 mg PO HS [facility] Last Admin: 11/28/18 21:57 Dose: 10 mg - Labs Labs: 11/29/18 06:40 11/27/18 21:09 PT 10.9 Seconds (9.8-13.1) 11/27/18 21:09 INR 1.0 11/27/18 21:09 APTT 33.3 Seconds (25.6-37.1) 11/27/18 21:09 - Constitutional Appears: No Acute Distress - Eye Exam Eye Exam: Normal appearance - Respiratory Exam Respiratory Exam: Clear to Ausculation Bilateral - Cardiovascular Exam Cardiovascular Exam: REGULAR RHYTHM - Extremities Exam Additional comments: RLE wrapped in gauze, DP +2 Assessment and Plan - Assessment and Plan (Free Text) Assessment: 66yo M w/ PMHx of HTN, PUD w/ duodenal ulcers, AKA, PVD, COPD, SBO admitted for R. Foot Cellulitis and abscess. No osteomyelitis on imaging. #R. LE cellulitis/ abscess #PAD - Podiatry, ID, and Vascular consulted - F/u R. LE VEL/PVR and MRI completed. No significant stenosis in arterial circulation noted. MRI report pending. - Evaluated by Dr. Smart at bedside today. States circulation to RLE is sufficient as DP pulse is present. Advised patient to wear proper fitting shoes, and lifestyle modifications (Exercise, diet, and quit smoking). Will f/u with him outpatient. - Vanco & Zosyn. - Will discharge home on po antibiotics if MRI negative for Osteo. - General Medical conditions managed as ordered Discussed with Dr. Tavia Glez, PGY2
--- NOTE | 2018-11-29 13:10 | CP.PCM.CON ---
History of Present Illness - History of Present Illness History of Present Illness: 68 y/o M w/ PMHx of HTN, duodenal ulcers, AKA RLE, PVD, COPD, SBO referred to ED from Dr. Squires for right foot infection, cellulitis and abscess. Patient states that a month ago he developed blister on the side of his right heel and the bottom of his right foot. He states that it started to get painful specially the one underneath his foot. He states that today he started to note redness at the 2nd, 3rd and 4th right toes. Patient denies any trauma to his right foot. He can't recall stepping on any foreign body. Patient denies any recent fever, chills, headache, chest pain, SOB, urinary/bowel changes, numbness or tingling in his right LE. PMHx: HTN, duodenal ulcers, left AKA, PVD, COPD, SBO PSH: Left AKA, Left inguinal hernia repair, ANGIOGRAMS. STENT RIGHT LEG. LEFT NECK surgery. Allergies: NKDA Social: Tobacco smoker 5 cigarettes/day,denies EtOH/illicit drugs use. Past Patient History - Infectious Disease Hx of Infectious Diseases: None - Tetanus Immunizations Tetanus Immunization: Unknown - Past Medical History & Family History Past Medical History?: Yes - Past Social History Smoking Status: cigar - CARDIAC Hx Cardiac Disorders: Yes Hx Atrial Fibrillation: No Hx Hypertension: Yes - PULMONARY Hx Respiratory Disorders: Yes Hx Bronchitis: Yes Hx Chronic Obstructive Pulmonary Disease (COPD): Yes Hx Emphysema: Yes - NEUROLOGICAL Hx Neurological Disorder: No - HEENT Hx HEENT Problems: Yes Other/Comment: wears glasses - RENAL Hx Chronic Kidney Disease: No - ENDOCRINE/METABOLIC Hx Endocrine Disorders: No - HEMATOLOGICAL/ONCOLOGICAL Hx Blood Disorders: Yes Hx Anemia: Yes - INTEGUMENTARY Hx Dermatological Problems: Yes Other/Comment: LIPOMA POSTERIOR NECK - MUSCULOSKELETAL/RHEUMATOLOGICAL Hx Musculoskeletal Disorders: No Hx Falls: No - GASTROINTESTINAL Hx Gastrointestinal Disorders: Yes Hx Ulcer: Yes Other/Comment: Hx SBO - GENITOURINARY/GYNECOLOGICAL Hx Genitourinary Disorders: No - PSYCHIATRIC Hx Psychophysiologic Disorder: No Hx Substance Use: No - SURGICAL HISTORY Hx Surgeries: Yes Other/Comment: ANGIOGRAMS. STENT RIGHT LEG. Neck surgery - ANESTHESIA Hx Anesthesia: Yes Hx Anesthesia Reactions: No Hx Malignant Hyperthermia: No Meds Allergies/Adverse Reactions: Allergies Allergy/AdvReac Type Severity Reaction Status Date / Time No Known Allergies Allergy Verified 10/17/18 11:13 - Medications Medications: Current Medications Aspirin (Ecotrin) 81 mg PO DAILY [facility] Last Admin: 11/28/18 09:30 Dose: 81 mg Cilostazol (Pletal) 100 mg PO BID [facility] Last Admin: 11/28/18 18:11 Dose: 100 mg Clopidogrel Bisulfate (Plavix) 75 mg PO DAILY [facility] Last Admin: 11/28/18 09:26 Dose: 75 mg Famotidine (Pepcid) 20 mg PO BID [facility] Last Admin: 11/28/18 18:16 Dose: 20 mg Ferrous Sulfate (Feosol) 325 mg PO DAILY [facility] Last Admin: 11/28/18 09:26 Dose: 325 mg Gabapentin (Neurontin) 300 mg PO BID [facility] Last Admin: 11/28/18 18:11 Dose: 300 mg Heparin Sodium (Porcine) (Heparin) 5,000 units SC Q8 [facility]; Protocol Last Admin: 11/28/18 18:11 Dose: 5,000 units Sodium Chloride (Sodium Chloride 0.45%) 1,000 mls @ 70 mls/hr IV .[id number] [facility] Stop: 11/29/18 05:35 Last Admin: 11/28/18 21:59 Dose: 70 mls/hr Piperacillin Sod/Tazobactam (Sod 3.375 gm/ Sodium Chloride) 100 mls @ 100 mls/hr IVPB Q8 [facility]; Protocol Last Admin: 11/28/18 18:16 Dose: 100 mls/hr Vancomycin HCl 1 gm/ Sodium (Chloride) 250 mls @ 166.667 mls/hr IVPB Q12@0100,1300 [facility]; Protocol Lisinopril (Zestril) 5 mg PO DAILY [facility] Last Admin: 11/28/18 09:19 Dose: Not Given Metoprolol Succinate (Toprol Xl) 25 mg PO DAILY [facility] Last Admin: 11/28/18 09:20 Dose: Not Given Mupirocin (Bactroban Ointment) 1 applic TOP BID [facility] Last Admin: 11/28/18 18:17 Dose: 1 applic Nortriptyline HCl (Pamelor) 10 mg PO HS [facility] Last Admin: 11/28/18 21:57 Dose: 10 mg Results - Vital Signs Recent Vital Signs: Last Vital Signs Temp 97.3 F L 11/28/18 23:51 Pulse 54 L 11/28/18 23:51 Resp 20 11/28/18 23:51 BP 114/68 11/28/18 23:51 Pulse Ox 95 11/28/18 23:51 - Labs Result Diagrams: 11/27/18 21:09 11/27/18 21:09 Labs: Laboratory Results - last 24 hr 11/27/18 21:09 C-Reactive Protein 17.10 H
--- NOTE | 2018-11-29 13:13 | CP.PCM.CON ---
History of Present Illness - History of Present Illness History of Present Illness: 68 y/o M referred to ED from Dr. Squires for right foot infection, cellulitis and abscess. Patient states that a month ago he developed blister on the side of his right heel and the bottom of his right foot Patient states he might have stepped on a nail ? ID consulted for antibiotic management PMHx: HTN, duodenal ulcers, left AKA, PVD, COPD, SBO PSH: Left AKA, Left inguinal hernia repair, ANGIOGRAMS. STENT RIGHT LEG. LEFT NECK surgery. Allergies: NKDA Social: Tobacco smoker 5 cigarettes/day,denies EtOH/illicit drugs use. Review of Systems - Review of Systems All systems: reviewed and no additional remarkable complaints except - Constitutional Constitutional: As Per HPI - EENT Eyes: absent: As Per HPI, Blind Spots, Blurred Vision, Change in Vision, Decreased Night Vision, Diplopia, Discharge, Dry Eye, Exophthalmos, Floaters, Irritation, Itchy Eyes, Loss of Peripheral Vision, Pain, Photophobia, Requires Corrective Lenses, Sees Flashes, Spots in Vision, Tunnel Vision, Other Visual Disturbances, Loss of Vision, Other Ears: absent: As Per HPI, Decreased Hearing, Ear Discharge, Ear Pain, Tinnitus, Abnormal Hearing, Disequilibrium, Dizziness, Other Nose/Mouth/Throat: absent: As Per HPI, Epistaxis, Nasal Congestion, Nasal Discharge, Nasal Obstruction, Nasal Trauma, Nose Pain, Post Nasal Drip, Sinus Pain, Sinus Pressure, Bleeding Gums, Change in Voice, Dental Pain, Dry Mouth, Dysphagia, Halitosis, Hoarsness, Lip Swelling, Mouth Lesions, Mouth Pain, Odynophagia, Sore Throat, Throat Swelling, Tongue Swelling, Facial Pain, Neck Pain, Neck Mass, Other - Cardiovascular Cardiovascular: As Per HPI - Respiratory Respiratory: absent: As Per HPI, Cough, Dyspnea, Hemoptysis, Dyspnea on Exertion, Wheezing, Snoring, Stridor, Pain on Inspiration, Chest Congestion, Excessive Mucous Production, Change in Mucous Color, Pain with Coughing, Other - Gastrointestinal Gastrointestinal: absent: As Per HPI, Abdominal Pain, Belching, Bloating, Change in Bowel Habits, Change in Stool Character, Coffee Ground Emesis, Constipation, Cramping, Diarrhea, Dyspepsia, Dysphagia, Early Satiety, Excessive Flatus, Fecal Incontinence, Heartburn, Hematemesis, Hematochezia, Loose Stools, Melena, Nausea, Odynophagia, Temesmus, Vomiting, Other - Genitourinary Genitourinary: absent: As Per HPI, Change in Urinary Stream, Difficulty Urinating, Dysuria, Flank Pain, Hematuria, Pyuria, Nocturia, Urinary Incontinence, Urinary Frequency, Urinary Hesitance, Urinary Urgency, Voiding Freq/Small Amts, Freq UTI, Hx Renal/Bladder Calculi, Hx /Renal Surgery, Bladder Distension, Other - Musculoskeletal Musculoskeletal: As Per HPI - Integumentary Integumentary: As Per HPI, Skin Pain, Wounds - Neurological Neurological: absent: As Per HPI, Abnormal Gait, Abnormal Hearing, Abnormal Movements, Abnormal Speech, Behavioral Changes, Burning Sensations, Confusion, Convulsions, Disequilibrium, Dizziness, Numbness, Focal Weakness, Frequent Falls, Headaches, Lack of Coordination, Loss of Vision, Memory Loss, Paresthesias, Radicular Pain, Restless Legs, Sensory Deficit, Syncope, Tingling, Tremor, Vertigo, Weakness, Other Visual Disturbances, Other - Psychiatric Psychiatric: absent: As Per HPI, Abnormal Sleep Pattern, Anhedonia, Anxiety, Auditory Hallucinations, Behavioral Changes, Change in Appetite, Change in Libido, Confusion, Depression, Difficulty Concentrating, Hallucinations, Homicidal Ideation, Hopelessness, Irritability, Memory Loss, Mood Swings, Panic Attacks, Paranoia, Suicidal Ideation, Visual Hallucinations, Tactile Ricki lucinations, Other - Endocrine Endocrine: absent: As Per HPI, Change in Body Appearance, Change in Libido, Cold Intolorance, Deepening of Voice, Excessive Sweating, Fatigue, Flushing, Heat Intolorance, Increase in Ring/Shoe/Hat Size, Palpitations, Polydipsia, P olyphagia, Polyuria, Other - Hematologic/Lymphatic Hematologic: absent: As Per HPI, Easy Bleeding, Easy Bruising, Lymphadenopathy, Other Past Patient History - Infectious Disease Hx of Infectious Diseases: None - Tetanus Immunizations Tetanus Immunization: Unknown - Past Medical History & Family History Past Medical History?: Yes - Past Social History Smoking Status: cigar - CARDIAC Hx Cardiac Disorders: Yes Hx Atrial Fibrillation: No Hx Hypertension: Yes - PULMONARY Hx Respiratory Disorders: Yes Hx Bronchitis: Yes Hx Chronic Obstructive Pulmonary Disease (COPD): Yes Hx Emphysema: Yes - NEUROLOGICAL Hx Neurological Disorder: No - HEENT Hx HEENT Problems: Yes Other/Comment: wears glasses - RENAL Hx Chronic Kidney Disease: No - ENDOCRINE/METABOLIC Hx Endocrine Disorders: No - HEMATOLOGICAL/ONCOLOGICAL Hx Blood Disorders: Yes Hx Anemia: Yes - INTEGUMENTARY Hx Dermatological Problems: Yes Other/Comment: LIPOMA POSTERIOR NECK - MUSCULOSKELETAL/RHEUMATOLOGICAL Hx Musculoskeletal Disorders: No Hx Falls: No - GASTROINTESTINAL Hx Gastrointestinal Disorders: Yes Hx Ulcer: Yes Other/Comment: Hx SBO - GENITOURINARY/GYNECOLOGICAL Hx Genitourinary Disorders: No - PSYCHIATRIC Hx Psychophysiologic Disorder: No Hx Substance Use: No - SURGICAL HISTORY Hx Surgeries: Yes Other/Comment: ANGIOGRAMS. STENT RIGHT LEG. Neck surgery - ANESTHESIA Hx Anesthesia: Yes Hx Anesthesia Reactions: No Hx Malignant Hyperthermia: No Meds Allergies/Adverse Reactions: Allergies Allergy/AdvReac Type Severity Reaction Status Date / Time No Known Allergies Allergy Verified 10/17/18 11:13 - Medications Medications: Current Medications Aspirin (Ecotrin) 81 mg PO DAILY [facility] Last Admin: 11/29/18 09:01 Dose: 81 mg Cilostazol (Pletal) 100 mg PO BID [facility] Last Admin: 11/29/18 09:07 Dose: 100 mg Clopidogrel Bisulfate (Plavix) 75 mg PO DAILY [facility] Last Admin: 11/29/18 09:06 Dose: 75 mg Famotidine (Pepcid) 20 mg PO BID [facility] Last Admin: 11/29/18 09:06 Dose: 20 mg Ferrous Sulfate (Feosol) 325 mg PO DAILY [facility] Last Admin: 11/29/18 09:01 Dose: 325 mg Gabapentin (Neurontin) 300 mg PO BID [facility] Last Admin: 11/29/18 09:05 Dose: 300 mg Heparin Sodium (Porcine) (Heparin) 5,000 units SC Q8 [facility]; Protocol Last Admin: 11/29/18 09:02 Dose: 5,000 units Piperacillin Sod/Tazobactam (Sod 3.375 gm/ Sodium Chloride) 100 mls @ 100 mls/hr IVPB Q8 [facility]; Protocol Last Admin: 11/29/18 09:09 Dose: 100 mls/hr Vancomycin HCl 1 gm/ Sodium (Chloride) 250 mls @ 166.667 mls/hr IVPB Q12@ 0100,1300 [facility]; Protocol Last Admin: 11/29/18 01:14 Dose: 166.667 mls/hr Lisinopril (Zestril) 5 mg PO DAILY [facility] Last Admin: 11/29/18 09:08 Dose: 5 mg Metoprolol Succinate (Toprol Xl) 25 mg PO DAILY [facility] Last Admin: 11/29/18 09:07 Dose: 25 mg Mupirocin (Bactroban Ointment) 1 applic TOP BID [facility] Last Admin: 11/29/18 09:00 Dose: 1 applic Nortriptyline HCl (Pamelor) 10 mg PO HS [facility] Last Admin: 11/28/18 21:57 Dose: 10 mg Physical Exam - Constitutional Appears: Non-toxic, Chronically Ill - Head Exam Head Exam: ATRAUMATIC, NORMAL INSPECTION, NORMOCEPHALIC - Eye Exam Eye Exam: EOMI, PERRL. absent: Scleral icterus Pupil Exam: NORMAL ACCOMODATION - ENT Exam ENT Exam: Mucous Membranes Dry, Normal External Ear Exam, Normal Oropharynx - Neck Exam Neck exam: Negative for: Lymphadenopathy - Respiratory Exam Respiratory Exam: Decreased Breath Sounds, Prolonged Expiratory Phase, Rhonchi - Cardiovascular Exam Cardiovascular Exam: REGULAR RHYTHM, +S1, +S2 - GI/Abdominal Exam GI & Abdominal Exam: Diminished Bowel Sounds, Distended, Soft. absent: Tenderness - Rectal Exam Rectal Exam: Deferred - Exam Exam: NORMAL INSPECTION - Extremities Exam Extremities exam: Positive for: pedal edema, tenderness. Negative for: calf tenderness, pedal pulses present Additional comments: left AKA right foot ulcer dry plantar 3rd and 4th met area - Back Exam Back exam: absent: CVA tenderness (L), CVA tenderness (R), paraspinal tenderness - Neurological Exam Neurological exam: Alert, CN II-XII Intact, Oriented x3, Reflexes Normal - Psychiatric Exam Psychiatric exam: Depressed - Skin Skin Exam: Dry Additional comments: decreased pulses Results - Vital Signs Recent Vital Signs: Last Vital Signs Temp 97.2 F L 11/29/18 08:26 Pulse 84 11/29/18 09:08 Resp 18 11/29/18 08:26 BP 116/69 11/29/18 09:08 Pulse Ox 98 11/29/18 08:26 - Labs Result Diagrams: 11/29/18 06:40 11/27/18 21:09 Labs: Laboratory Results - last 24 hr 11/27/18 11/29/18 11/29/18 21:09 06:40 06:40 WBC 6.5 RBC 4.76 Hgb 15.2 Hct 45.2 MCV 94.8 H MCH 32.0 H MCHC 33.7 RDW 14.6 H Plt Count 191 MPV 8.8 Neut % (Auto) 47.4 L Lymph % (Auto) 40.6 H Cochran % (Auto) 8.5 Eos % (Auto) 2.9 Baso % (Auto) 0.6 Neut # (Auto) 3.1 Lymph # (Auto) 2.6 Cochran # (Auto) 0.5 Eos # (Auto) 0.2 Baso # (Auto) 0.0 Hemoglobin A1c 5.5 C-Reactive Protein 17.10 H Assessment & Plan (1) Cellulitis of right foot Status: Acute (2) PVD (peripheral vascular disease) with claudication Status: Chronic Priority: High - Assessment and Plan (Free Text) Assessment: r/o OM right foot bneeds MRI, vascular studies will check cultures coint IV antibiotics and wound care poor prognosis for limb salvage
--- NOTE | 2018-11-29 18:03 | MRI ---
MRI right forefoot History: Ulceration. Evaluate for osteomyelitis. Comparison: None available. Technique: Multi-echo multiplanar sequences were performed through the right forefoot without the use of intravenous contrast. Findings: At the site of the external markers, there is soft tissue ulceration seen at the level of the 3rd and 4th metatarsal bones near the MTP joint spaces. Adjacent reticulation and edema within the soft tissues at that level suggestive for a cellulitis. No gross or discrete abscess collection identified. No evidence of gross signal abnormality within the visualized osseous structures to suggest an acute osteomyelitis. Impression: At the site of the external markers, there is soft tissue ulceration seen at the level of the 3rd and 4th metatarsal bones near the MTP joint spaces. Adjacent reticulation and edema within the soft tissues at that level suggestive for a cellulitis. No gross or discrete abscess collection identified. No evidence of gross signal abnormality within the visualized osseous structures to suggest an acute osteomyelitis. If there is persistent concern for acute osteomyelitis, consider correlation with a three-phase bone scan.
[2018-11-30] MEDS: Piperacillin/Tazobact 3.375 GM in Sodium Chloride 0.9% 100 ML IVPB SCH ×3 (02:00→18:00)
--- NOTE | 2018-11-30 03:53 | CON ---
DATE: 11/29/2018 DOCTOR REQUESTING: Dr. Mcmillan. REASON FOR REQUEST: Peripheral vascular disease. REPORT OF CONSULTATION: This middle aged male patient was admitted to the hospital with a lesion of his right sole. The patient has a previous left BKA and was ambulatory with crutches and has a prosthesis. The patient stated that the lesion started as a blister. This was subsequently debrided by Podiatry. The patient's noninvasive study is suggestive of diffuse disease of both the femoropopliteal and tibial. MEDICATIONS: As reviewed in the medical reconciliation sheet. ALLERGIES: NO KNOWN ALLERGIES. SOCIAL HISTORY: The patient is a smoker. REVIEW OF SYSTEMS: SKIN: See history of present illness. HEAD AND NECK: No migraines, nose bleeds, double vision, sore throat, or hearing disorders. RESPIRATORY: No hemoptysis. No asthma, emphysema. CARDIOVASCULAR: No chest pain, palpitation, shortness of breath. GASTROINTESTINAL: No abdominal pain, nausea, vomiting, diarrhea, or blood in the stool. GENITOURINARY: No dysuria or hematuria. NEUROLOGIC: No paralysis, paresthesia. No seizures, problems with swallowing or speaking. PSYCHIATRIC: No known diseases. PHYSICAL EXAMINATION: GENERAL: Reveals a pleasant male patient in bed, in no acute distress. HEAD AND NECK: Neck supple. No masses. Mucous membranes pink. No jaundice. CHEST: No masses. Equal expansion. THYROID: No enlargement. No masses. LUNGS: Clear. Good air entry. CARDIOVASCULAR: Heart sounds 1 and 2. No murmurs. ABDOMEN: Soft, nontender. No masses. Bowel sounds present. LYMPHATIC: No adenopathy. NEUROLOGIC: Alert, oriented. No gross deficits. EXTREMITIES/VASCULAR: The patient had a healed left AKA stump and a palpable dorsalis pedis pulse in his right foot. There was a healed ulcer on the sole of his right foot. IMPRESSION: Peripheral vascular disease by history. No evidence of any critical ischemia at present. RECOMMENDATIONS: The patient's right lower extremity is not threatened by ischemia and no intervention is necessary at this time. Owen Smart MD
--- NOTE | 2018-11-30 10:30 | CP.PCM.PN ---
Subjective - Date & Time of Evaluation Date of Evaluation: 11/30/18 Time of Evaluation: 10:30 - Subjective Subjective: Podiatry Progress Note: Dr. Goetz 68 year old male patient seen and evaluated for R foot bullae with cellulitis; cellulitis improving. Patient resting comfortably and in NAD. He denies any acute events overnight. Patient states that he thinks the blisters occurred because his shoes are too small. Denies nausea/vomiting/fever. Objective - Vital Signs/Intake and Output Vital Signs (last 24 hours): Temp Pulse Resp BP Pulse Ox 97.5 F L 61 19 133/80 97 11/30/18 08:01 11/30/18 08:01 11/30/18 08:01 11/30/18 08:01 11/30/18 08:01 - Medications Medications: Current Medications Aspirin (Ecotrin) 81 mg PO DAILY [facility] Last Admin: 11/29/18 09:01 Dose: 81 mg Cilostazol (Pletal) 100 mg PO BID [facility] Last Admin: 11/29/18 16:45 Dose: 100 mg Clopidogrel Bisulfate (Plavix) 75 mg PO DAILY [facility] Last Admin: 11/29/18 09:06 Dose: 75 mg Famotidine (Pepcid) 20 mg PO BID [facility] Last Admin: 11/29/18 16:45 Dose: 20 mg Ferrous Sulfate (Feosol) 325 mg PO DAILY [facility] Last Admin: 11/29/18 09:01 Dose: 325 mg Gabapentin (Neurontin) 300 mg PO BID [facility] Last Admin: 11/29/18 16:45 Dose: 300 mg Heparin Sodium (Porcine) (Heparin) 5,000 units SC Q8 [facility]; Protocol Last Admin: 11/30/18 00:26 Dose: 5,000 units Piperacillin Sod/Tazobactam (Sod 3.375 gm/ Sodium Chloride) 100 mls @ 100 mls/hr IVPB Q8 [facility]; Protocol Last Admin: 11/30/18 02:00 Dose: 100 mls/hr Vancomycin HCl 1 gm/ Sodium (Chloride) 250 mls @ 166.667 mls/hr IVPB Q12@0100,1300 [facility]; Protocol Last Admin: 11/30/18 00:26 Dose: 166.667 mls/hr Lisinopril (Zestril) 5 mg PO DAILY [facility] Last Admin: 11/29/18 09:08 Dose: 5 mg Metoprolol Succinate (Toprol Xl) 25 mg PO DAILY [facility] Last Admin: 11/29/18 09:07 Dose: 25 mg Mupirocin (Bactroban Ointment) 1 applic TOP BID [facility] Last Admin: 11/29/18 16:44 Dose: 1 applic Nortriptyline HCl (Pamelor) 10 mg PO HS [facility] Last Admin: 11/29/18 22:23 Dose: 10 mg - Labs Labs: 11/29/18 06:40 11/27/18 21:09 PT 10.9 Seconds (9.8-13.1) 11/27/18 21:09 INR 1.0 11/27/18 21:09 APTT 33.3 Seconds (25.6-37.1) 11/27/18 21:09 - Constitutional Appears: Non-toxic, No Acute Distress - Head Exam Head Exam: ATRAUMATIC, NORMOCEPHALIC - Extremities Exam Additional comments: RLE focused exam, L AKA: Vascular: DP 1/4, PT 2/4 , Cap refill < 3 seconds to all digits, Temp gradient warm to warm from proximal to distal, Mild non pitting edema noted to the right forefoot. Ortho: Muscle power 5/5 to all groups, no pain with calf compression Neuro: Gross sensation intact, protective sensation diminished Derm: Drained bullae appreciated submet 3 and 4 measuring approximately 1.5 x 1.0 x.1 cm. Additional drained bullae appreciated to heel. No drainage, no undermining, no tunneling, no tracking, no probe to bone. No additional lesions noted at this time. - Neurological Exam Neurological Exam: Alert, Awake, Oriented x3 - Psychiatric Exam Psychiatric exam: Normal Affect, Normal Mood Assessment and Plan - Assessment and Plan (Free Text) Assessment: 68M with PMHx of HTN, AKA RLE, PVD, COPD with R foot bullae with cellulitis; improving. Plan: Patient seen and evaluated Discussed in detail with Dr. Goetz Charts, labs and vitals reviewed; Afebrile, ESR 6, CRP 17 Wound culture; Staph aureus Right foot 3 views X-ray; no emphysema soft tissue changes. Diffuse osteopenia suggests osteoporosis R LE VEL/PVR; no significant stenosis R common femoral artery. Arterial disease is seen throughout the RLE including SFA. R LE CT scan; Anterior and medial cellulitis affecting upper and mid leg subctaneous fat without emphysematous changes. Limited plantar celluilitis is appreicated more so than at the dorsal R foot. No fracture, destructive bony lesion, subluxation or dislocation. R LE venous duplex ordered; no evidence of DVT LE MRI: no gross or discrete abscess collection identified. No evidence to suggest acute OM. Local wound care with bactroban Foot stable from podiatry standpoint at this time, no surgical intervention Will continue to follow
[2018-11-30] MEDS: Cilostazol 100 mg Tab UD PO SCH ×2 (10:31→18:00)
[2018-11-30] MEDS: Metoprolol Succinate 25 mg XL Tab PO SCH (10:32)
--- NOTE | 2018-11-30 13:15 | CP.PCM.PN ---
<Sonam Glez - Last Filed: 11/30/18 13:10> Subjective - Date & Time of Evaluation Date of Evaluation: 11/30/18 Time of Evaluation: 08:00 - Subjective Subjective: Pt seen and examined this morning. Denies pain. Objective - Vital Signs/Intake and Output Vital Signs (last 24 hours): Temp Pulse Resp BP Pulse Ox 97.5 F L 89 19 133/80 94 L 11/30/18 08:01 11/30/18 11:34 11/30/18 08:01 11/30/18 08:01 11/30/18 11:34 - Medications Medications: Current Medications Aspirin (Ecotrin) 81 mg PO DAILY [facility] Last Admin: 11/30/18 10:32 Dose: 81 mg Cilostazol (Pletal) 100 mg PO BID [facility] Last Admin: 11/30/18 10:31 Dose: 100 mg Clopidogrel Bisulfate (Plavix) 75 mg PO DAILY [facility] Last Admin: 11/30/18 10:32 Dose: 75 mg Famotidine (Pepcid) 20 mg PO BID [facility] Last Admin: 11/30/18 10:30 Dose: 20 mg Ferrous Sulfate (Feosol) 325 mg PO DAILY [facility] Last Admin: 11/30/18 10:30 Dose: 325 mg Gabapentin (Neurontin) 300 mg PO BID [facility] Last Admin: 11/30/18 10:30 Dose: 300 mg Heparin Sodium (Porcine) (Heparin) 5,000 units SC Q8 [facility]; Protocol Last Admin: 11/30/18 10:33 Dose: 5,000 units Piperacillin Sod/Tazobactam (Sod 3.375 gm/ Sodium Chloride) 100 mls @ 100 mls/hr IVPB Q8 [facility]; Protocol Last Admin: 11/30/18 10:40 Dose: 100 mls/hr Vancomycin HCl 1 gm/ Sodium (Chloride) 250 mls @ 166.667 mls/hr IVPB Q12@0100,1300 [facility]; Protocol Last Admin: 11/30/18 00:26 Dose: 166.667 mls/hr Lisinopril (Zestril) 5 mg PO DAILY [facility] Last Admin: 11/30/18 10:32 Dose: 5 mg Metoprolol Succinate (Toprol Xl) 25 mg PO DAILY [facility] Last Admin: 11/30/18 10:32 Dose: 25 mg Mupirocin (Bactroban Ointment) 1 applic TOP BID [facility] Last Admin: 11/30/18 10:43 Dose: 1 applic Nortriptyline HCl (Pamelor) 10 mg PO HS [facility] Last Admin: 11/29/18 22:23 Dose: 10 mg - Labs Labs: 11/29/18 06:40 11/27/18 21:09 PT 10.9 Seconds (9.8-13.1) 11/27/18 21:09 INR 1.0 11/27/18 21:09 APTT 33.3 Seconds (25.6-37.1) 11/27/18 21:09 - Constitutional Appears: No Acute Distress - Head Exam Head Exam: NORMAL INSPECTION - Eye Exam Eye Exam: Normal appearance - ENT Exam ENT Exam: Mucous Membranes Moist - Respiratory Exam Respiratory Exam: Clear to Ausculation Bilateral - Cardiovascular Exam Cardiovascular Exam: REGULAR RHYTHM - GI/Abdominal Exam GI & Abdominal Exam: Soft, Normal Bowel Sounds. absent: Tenderness - Extremities Exam Additional comments: Small shallow clean based ulcer in plantar surface of foot. Covered in bandaid which is clean and dry. No active drainage or surrounding erythema Assessment and Plan - Assessment and Plan (Free Text) Assessment: 66yo M w/ PMHx of HTN, PUD w/ duodenal ulcers, AKA, PVD, COPD, SBO admitted for R. Foot Cellulitis and abscess. No osteomyelitis on imaging. #R. LE cellulitis/ abscess #PAD - Podiatry, ID, and Vascular consulted - F/u R. LE VEL/PVR. No significant stenosis in arterial circulation noted - MRI LE: No evidenec of gross signal abnormality to suggest acute osteomyelitis (addendum:..correlation with 3 phase bone scan if clinically indicated) - Will get 3 phase bone scan - Evaluated by Dr. Smart (Vascular) at bedside on 11/29. States circulation to RLE is sufficient as DP pulse is present. Advised patient to wear proper fitting shoes, and lifestyle modifications (Exercise, diet, and quit smoking). Will f/u with him outpatient. - Vanco & Zosyn. - Will discharge home on po antibiotics if Bone scan negative for Osteo. - General Medical conditions managed as ordered Discussed with Dr. Tavia Glez, PGY2 <Colton Squires - Last Filed: 12/04/18 10:19> Objective - Vital Signs/Intake and Output Vital Signs (last 24 hours): Temp Pulse Resp BP Pulse Ox 98.1 F 72 20 126/72 98 12/02/18 09:00 12/02/18 09:00 12/02/18 09:00 12/02/18 09:00 12/02/18 09:00 - Labs Labs: 12/01/18 06:10 12/01/18 06:10 PT 10.9 Seconds (9.8-13.1) 11/27/18 21:09 INR 1.0 11/27/18 21:09 APTT 33.3 Seconds (25.6-37.1) 11/27/18 21:09 Assessment and Plan - Assessment and Plan (Free Text) Assessment: Patient was personally seen and examined by me in rounds with residents. Available labs and diagnostic data reviewed. Case, Patient's condition and management plan discussed with residents in rounds. Agree with resident's progress note.
[2018-12-01] MEDS: Piperacillin/Tazobact 3.375 GM in Sodium Chloride 0.9% 100 ML IVPB SCH ×3 (00:38→17:27)
[2018-12-01 06:34] LABS: HEMOGLOBIN 16.4 g/dL (12.0-18.0); MEAN CELL VOLUME 96.2 fl (80.0-94.0); MEAN CORPUSCULAR HEMOGLOBIN 32.1 pg (27.0-31.0); MEAN CORPUSCULAR HGB CONC 33.4 g/dL (33.0-37.0); RBC 5.11 Mil/uL (4.40-5.90); RED CELL DISTRIBUTION WIDTH 14.5 % (11.5-14.5); WHITE BLOOD COUNT 7.1 K/uL (4.8-10.8)
--- NOTE | 2018-12-01 06:48 | CP.PCM.PN ---
Subjective - Date & Time of Evaluation Date of Evaluation: 12/01/18 Time of Evaluation: 06:48 - Subjective Subjective: Podiatry Progress Note: Dr. Goetz Patient seen and evaluated this AM. Resting comfortably and in NAD. He states that he feels well today and in no pain to his R foot. He denies any additional pedal complaints at this time. Denies nausea/vomiting/fever/shortness of breath/chest pain. Objective - Vital Signs/Intake and Output Vital Signs (last 24 hours): Temp Pulse Resp BP Pulse Ox 97.2 F L 70 20 148/77 97 11/30/18 23:42 11/30/18 23:42 11/30/18 23:42 11/30/18 23:42 12/01/18 06:39 - Medications Medications: Current Medications Aspirin (Ecotrin) 81 mg PO DAILY [facility] Last Admin: 11/30/18 10:32 Dose: 81 mg Cilostazol (Pletal) 100 mg PO BID [facility] Last Admin: 11/30/18 18:00 Dose: 100 mg Clopidogrel Bisulfate (Plavix) 75 mg PO DAILY [facility] Last Admin: 11/30/18 10:32 Dose: 75 mg Famotidine (Pepcid) 20 mg PO BID [facility] Last Admin: 11/30/18 18:00 Dose: 20 mg Ferrous Sulfate (Feosol) 325 mg PO DAILY [facility] Last Admin: 11/30/18 10:30 Dose: 325 mg Gabapentin (Neurontin) 300 mg PO BID [facility] Last Admin: 11/30/18 18:00 Dose: 300 mg Heparin Sodium (Porcine) (Heparin) 5,000 units SC Q8 [facility]; Protocol Last Admin: 12/01/18 00:38 Dose: 5,000 units Piperacillin Sod/Tazobactam (Sod 3.375 gm/ Sodium Chloride) 100 mls @ 100 mls/hr IVPB Q8 [facility]; Protocol Last Admin: 12/01/18 00:38 Dose: 100 mls/hr Vancomycin HCl 1 gm/ Sodium (Chloride) 250 mls @ 166.667 mls/hr IVPB Q12@0100,1300 [facility]; Protocol Last Admin: 11/30/18 15:52 Dose: Not Given Lisinopril (Zestril) 5 mg PO DAILY [facility] Last Admin: 11/30/18 10:32 Dose: 5 mg Metoprolol Succinate (Toprol Xl) 25 mg PO DAILY [facility] Last Admin: 11/30/18 10:32 Dose: 25 mg Mupirocin (Bactroban Ointment) 1 applic TOP BID [facility] Last Admin: 11/30/18 18:00 Dose: 1 applic Nortriptyline HCl (Pamelor) 10 mg PO HS [facility] Last Admin: 11/30/18 22:00 Dose: 10 mg - Labs Labs: 12/01/18 06:10 11/27/18 21:09 PT 10.9 Seconds (9.8-13.1) 11/27/18 21:09 INR 1.0 11/27/18 21:09 APTT 33.3 Seconds (25.6-37.1) 11/27/18 21:09 - Constitutional Appears: Non-toxic, No Acute Distress - Head Exam Head Exam: ATRAUMATIC, NORMOCEPHALIC - Extremities Exam Additional comments: RLE focused exam, L AKA: Vascular: DP 1/4, PT 2/4 , Cap refill < 3 seconds to all digits, Temp gradient warm to warm from proximal to distal, Mild non pitting edema noted to the right forefoot. Ortho: Muscle power 5/5 to all groups, no pain with calf compression Neuro: Gross sensation intact, protective sensation diminished Derm: Drained bullae appreciated submet 3 and 4 measuring approximately 1.5 x 1.0 x.1 cm. Additional drained bullae appreciated to heel. No drainage, no undermining, no tunneling, no tracking, no probe to bone. No additional lesions noted at this time. - Neurological Exam Neurological Exam: Alert, Awake, Oriented x3 - Psychiatric Exam Psychiatric exam: Normal Affect, Normal Mood Assessment and Plan - Assessment and Plan (Free Text) Assessment: 68M with PMHx of HTN, AKA RLE, PVD, COPD with R foot bullae with cellulitis; improving. Plan: Patient seen and evaluated Discussed in detail with Dr. Goetz Charts, labs and vitals reviewed; Afebrile, ESR 6, CRP 17 Wound culture; Staph aureus Right foot 3 views X-ray; no emphysema soft tissue changes. Diffuse osteopenia suggests osteoporosis R LE VEL/PVR; no significant stenosis R common femoral artery. Arterial disease is seen throughout the RLE including SFA. R LE CT scan; Anterior and medial cellulitis affecting upper and mid leg subctaneous fat without emphysematous changes. Limited plantar celluilitis is appreicated more so than at the dorsal R foot. No fracture, destructive bony lesion, subluxation or dislocation. R LE venous duplex ordered; no evidence of DVT LE MRI: no gross or discrete abscess collection identified. No evidence to sug gest acute OM. Local wound care with bactroban Foot stable from podiatry standpoint at this time, no surgical intervention Patent to follow up as needed in podiatry clinic on
[2018-12-01 08:04] LABS: BLOOD UREA NITROGEN 20 mg/dl (9-20); GFR NON-AFRICAN AMERICAN 51
[2018-12-01 08:05] LABS: ALB/GLOB RATIO 1.4 (1.0-2.1); ALBUMIN 4.1 g/dL (3.5-5.0); ALT/SGPT 18 U/L (21-72); AST/SGOT 34 U/L (17-59); CALCIUM 9.5 mg/dL (8.4-10.2)
[2018-12-01] MEDS: Cilostazol 100 mg Tab UD PO SCH ×2 (09:08→17:29)
[2018-12-01] MEDS: Metoprolol Succinate 25 mg XL Tab PO SCH (09:08)
--- NOTE | 2018-12-01 13:17 | CP.PCM.PN ---
Subjective - Date & Time of Evaluation Date of Evaluation: 12/01/18 Time of Evaluation: 07:00 - Subjective Subjective: 68 y/o M referred to ED from Dr. Squires for right foot infection, cellulitis and abscess. Patient states that a month ago he developed blister on the side of his right heel and the bottom of his right foot Patient states he might have stepped on a nail ? ID consulted for antibiotic management MRI neg for OM wound growing MSSA vascular reports sufficient flow await Bone scan possible d/c on PO rx Objective - Vital Signs/Intake and Output Vital Signs (last 24 hours): Temp Pulse Resp BP Pulse Ox 97.5 F L 62 19 149/85 99 12/01/18 07:59 12/01/18 09:09 12/01/18 07:59 12/01/18 09:09 12/01/18 07:59 - Medications Medications: Current Medications Aspirin (Ecotrin) 81 mg PO DAILY [facility] Last Admin: 12/01/18 09:09 Dose: 81 mg Cilostazol (Pletal) 100 mg PO BID [facility] Last Admin: 12/01/18 09:08 Dose: 100 mg Clopidogrel Bisulfate (Plavix) 75 mg PO DAILY [facility] Last Admin: 12/01/18 09:09 Dose: 75 mg Famotidine (Pepcid) 20 mg PO BID [facility] Last Admin: 12/01/18 09:09 Dose: 20 mg Ferrous Sulfate (Feosol) 325 mg PO DAILY [facility] Last Admin: 12/01/18 09:08 Dose: 325 mg Gabapentin (Neurontin) 300 mg PO BID [facility] Last Admin: 12/01/18 09:08 Dose: 300 mg Heparin Sodium (Porcine) (Heparin) 5,000 units SC Q8 [facility]; Protocol Last Admin: 12/01/18 09:10 Dose: 5,000 units Piperacillin Sod/Tazobactam (Sod 3.375 gm/ Sodium Chloride) 100 mls @ 100 mls/hr IVPB Q8 [facility]; Protocol Last Admin: 12/01/18 09:07 Dose: 100 mls/hr Vancomycin HCl 1 gm/ Sodium (Chloride) 250 mls @ 166.667 mls/hr IVPB Q12@0100,1300 [facility]; Protocol Last Admin: 11/30/18 15:52 Dose: Not Given Lisinopril (Zestril) 5 mg PO DAILY [facility] Last Admin: 12/01/18 09:09 Dose: 5 mg Metoprolol Succinate (Toprol Xl) 25 mg PO DAILY [facility] Last Admin: 12/01/18 09:08 Dose: 25 mg Mupirocin (Bactroban Ointment) 1 applic TOP BID [facility] Last Admin: 12/01/18 09:09 Dose: 1 applic Nortriptyline HCl (Pamelor) 10 mg PO HS [facility] Last Admin: 11/30/18 22:00 Dose: 10 mg - Labs Labs: 12/01/18 06:10 12/01/18 06:10 PT 10.9 Seconds (9.8-13.1) 11/27/18 21:09 INR 1.0 11/27/18 21:09 APTT 33.3 Seconds (25.6-37.1) 11/27/18 21:09 - Constitutional Appears: Well - Head Exam Head Exam: ATRAUMATIC, NORMAL INSPECTION, NORMOCEPHALIC - Eye Exam Eye Exam: EOMI, Normal appearance, PERRL Pupil Exam: NORMAL ACCOMODATION, PERRL - ENT Exam ENT Exam: Mucous Membranes Moist, Normal Exam - Neck Exam Neck Exam: Full ROM, Normal Inspection. absent: Lymphadenopathy - Respiratory Exam Respiratory Exam: Clear to Ausculation Bilateral, NORMAL BREATHING PATTERN - Cardiovascular Exam Cardiovascular Exam: REGULAR RHYTHM, +S1, +S2. absent: Murmur - GI/Abdominal Exam GI & Abdominal Exam: Soft, Normal Bowel Sounds. absent: Tenderness - Rectal Exam Rectal Exam: Deferred - Extremities Exam Extremities Exam: Full ROM. absent: Joint Swelling, Normal Capillary Refill, Normal Inspection, Pedal Edema Additional comments: left aka - Back Exam Back Exam: NORMAL INSPECTION - Neurological Exam Neurological Exam: Alert, Awake, CN II-XII Intact, Normal Gait, Oriented x3 - Psychiatric Exam Psychiatric exam: Normal Affect, Normal Mood - Skin Skin Exam: Dry, Intact, Normal Color, Warm Assessment and Plan (1) Cellulitis of right foot Status: Acute (2) PVD (peripheral vascular disease) with claudication Status: Chronic - Assessment and Plan (Free Text) Assessment: 68 y/o M referred to ED from Dr. Squires for right foot infection, cellulitis and abscess. Patient states that a month ago he developed blister on the side of his right heel and the bottom of his right foot Patient states he might have stepped on a nail ? ID consulted for antibiotic management MRI neg for OM wound growing [facility] vascular reports sufficient flow await Bone scan possible d/c on PO rx for 10 days
--- NOTE | 2018-12-01 14:31 | CP.PCM.PN ---
<Sonam Glez - Last Filed: 12/01/18 14:29> Subjective - Date & Time of Evaluation Date of Evaluation: 12/01/18 Time of Evaluation: 07:00 - Subjective Subjective: Pt seen and examined. No complaints. Pending Bone scan today. Objective - Vital Signs/Intake and Output Vital Signs (last 24 hours): Temp Pulse Resp BP Pulse Ox 97.5 F L 62 19 149/85 99 12/01/18 07:59 12/01/18 09:09 12/01/18 07:59 12/01/18 09:09 12/01/18 07:59 - Medications Medications: Current Medications Aspirin (Ecotrin) 81 mg PO DAILY [facility] Last Admin: 12/01/18 09:09 Dose: 81 mg Cilostazol (Pletal) 100 mg PO BID [facility] Last Admin: 12/01/18 09:08 Dose: 100 mg Clopidogrel Bisulfate (Plavix) 75 mg PO DAILY [facility] Last Admin: 12/01/18 09:09 Dose: 75 mg Famotidine (Pepcid) 20 mg PO BID [facility] Last Admin: 12/01/18 09:09 Dose: 20 mg Ferrous Sulfate (Feosol) 325 mg PO DAILY [facility] Last Admin: 12/01/18 09:08 Dose: 325 mg Gabapentin (Neurontin) 300 mg PO BID [facility] Last Admin: 12/01/18 09:08 Dose: 300 mg Heparin Sodium (Porcine) (Heparin) 5,000 units SC Q8 [facility]; Protocol Last Admin: 12/01/18 09:10 Dose: 5,000 units Piperacillin Sod/Tazobactam (Sod 3.375 gm/ Sodium Chloride) 100 mls @ 100 mls/hr IVPB Q8 [facility]; Protocol Last Admin: 12/01/18 09:07 Dose: 100 mls/hr Vancomycin HCl 1 gm/ Sodium (Chloride) 250 mls @ 166.667 mls/hr IVPB Q12@0100,1300 [facility]; Protocol Last Admin: 11/30/18 15:52 Dose: Not Given Lisinopril (Zestril) 5 mg PO DAILY [facility] Last Admin: 12/01/18 09:09 Dose: 5 mg Metoprolol Succinate (Toprol Xl) 25 mg PO DAILY [facility] Last Admin: 12/01/18 09:08 Dose: 25 mg Mupirocin (Bactroban Ointment) 1 applic TOP BID [facility] Last Admin: 12/01/18 09:09 Dose: 1 applic Nortriptyline HCl (Pamelor) 10 mg PO HS [facility] Last Admin: 11/30/18 22:00 Dose: 10 mg - Labs Labs: 12/01/18 06:10 12/01/18 06:10 PT 10.9 Seconds (9.8-13.1) 11/27/18 21:09 INR 1.0 11/27/18 21:09 APTT 33.3 Seconds (25.6-37.1) 11/27/18 21:09 - Constitutional Appears: No Acute Distress - Eye Exam Eye Exam: Normal appearance - ENT Exam ENT Exam: Mucous Membranes Moist - Respiratory Exam Respiratory Exam: Chest Wall Tenderness, Clear to Ausculation Bilateral - Cardiovascular Exam Cardiovascular Exam: REGULAR RHYTHM - GI/Abdominal Exam GI & Abdominal Exam: Normal Bowel Sounds - Extremities Exam Extremities Exam: Normal Capillary Refill, Normal Inspection - Neurological Exam Neurological Exam: Alert, Oriented x3 - Psychiatric Exam Psychiatric exam: Normal Affect Assessment and Plan - Assessment and Plan (Free Text) Assessment: 66yo M w/ PMHx of HTN, PUD w/ duodenal ulcers, AKA, PVD, COPD, SBO admitted for R. Foot Cellulitis and abscess. No osteomyelitis on imaging. #R. LE cellulitis/ abscess #PAD - Pending 3 phase bone scan today - Podiatry, ID, and Vascular consulted - F/u R. LE VEL/PVR. No significant stenosis in arterial circulation noted - MRI LE: No evidenec of gross signal abnormality to suggest acute osteomyelitis (addendum:..correlation with 3 phase bone scan if clinically indicated) - Will get 3 phase bone scan - Evaluated by Dr. Smart (Vascular) at bedside on 11/29. States circulation to RLE is sufficient as DP pulse is present. Advised patient to wear proper fitting shoes, and lifestyle modifications (Exercise, diet, and quit smoking). Will f/u with him outpatient. - Vanco & Zosyn. - Will discharge home on po antibiotics if Bone scan negative for Osteo. - General Medical conditions managed as ordered Discussed with Dr. Tavia Glez, PGY2 <Colton Squires - Last Filed: 12/04/18 10:13> Objective - Vital Signs/Intake and Output Vital Signs (last 24 hours): Temp Pulse Resp BP Pulse Ox 98.1 F 72 20 126/72 98 12/02/18 09:00 12/02/18 09:00 12/02/18 09:00 12/02/18 09:00 12/02/18 09:00 - Labs Labs: 12/01/18 06:10 12/01/18 06:10 PT 10.9 Seconds (9.8-13.1) 11/27/18 21:09 INR 1.0 11/27/18 21:09 APTT 33.3 Seconds (25.6-37.1) 11/27/18 21:09 Assessment and Plan - Assessment and Plan (Free Text) Assessment: Patient was personally seen and examined by me in rounds with residents. Available labs and diagnostic data reviewed. Case, Patient's condition and management plan discussed with residents in rounds. Agree with resident's progress note.
--- NOTE | 2018-12-01 15:26 | NM ---
Date of service: 11/30/2018 PROCEDURE: Three-phase bone Scan HISTORY: R/o osteomyelitis RLE COMPARISON: 11/28/2018. MRI right lower extremity. TECHNIQUE: Following administration of 25.0 miCu of Tc MDP three-phase bone scan performed. Particular attention directed to the 3rd through 5th digits right foot FINDINGS: Flow component: Increased flow to the distal aspect of the right foot. Blood pool component: Accumulation of radionuclide within the soft tissues particularly about the distal aspect of the digits. Delayed images at 3:00: Retention of radionuclide distal aspect right foot. Additional foci of increased uptake noted about the hindfoot and tarsal bones. Other findings: None. IMPRESSION: Findings consistent with cellulitis. No scintigraphic evidence of acute osteomyelitis.
[2018-12-02] MEDS: Piperacillin/Tazobact 3.375 GM in Sodium Chloride 0.9% 100 ML IVPB SCH ×2 (00:24→08:46)
[2018-12-02 08:40] VITALS: BP 126/72; PULSE 72; RESP 20; TEMP 98.1; O2SAT 98
[2018-12-02] MEDS: Cilostazol 100 mg Tab UD PO SCH (08:42)
[2018-12-02] MEDS: Metoprolol Succinate 25 mg XL Tab PO SCH (08:43)
--- NOTE | 2018-12-02 12:07 | PN ---
DATE: 12/02/2018 SUBJECTIVE: The patient is seen and examined. Interim events noted. Consults noted and appreciated. Podiatry followup and intervention noted and appreciated. The patient remains in regular medical floor. The patient feels much better. Pain is much improved. No chest pain. No shortness of breath. PHYSICAL EXAMINATION: GENERAL: The patient is in no acute distress. VITAL SIGNS: Stable. HEART: S1, S2 normal and regular. LUNGS: Good bilateral air exchange. ABDOMEN: Soft, nontender. EXTREMITIES: No edema. No calf swelling. No tenderness. No acute ischemia. The patient is status post amputation. CENTRAL NERVOUS SYSTEM: Exam is essentially unchanged. DIAGNOSTIC DATA: Available diagnostic data reviewed. Bone scan is negative for osteomyelitis. ASSESSMENT AND PLAN: Overall, the patient's general medical condition is stable. Plan as ordered. We will discharge the patient home. The patient will be followed up in the office. Plan as ordered. Colton Squires MD
== END 2018-12-02 14:58 | disposition home or self-care (01) | DRG 603 ==
LOC: H.ER 18:53 → H.ERHOLD 20:46 → UNDOADMIN 20:46 → H.ERHOLD 22:28 → UNDOADMIN 22:28 → H.MEDSURG1 23:45
PROVIDERS: ADMIT Internal Medicine; ATTEND Internal Medicine
PROC: 0H9MXZZ Drainage of Right Foot Skin, External Approach (ICD-10-PCS; principal; 2018-11-28)
DX: L03.115 Cellulitis of right lower limb (principal); L02.611 Cutaneous abscess of right foot; B95.61 Methicillin susceptible Staphylococcus aureus infection as the cause of diseases classified elsewhere; S90.821A Blister (nonthermal), right foot, initial encounter; M77.31 Calcaneal spur, right foot; J43.9 Emphysema, unspecified; I10 Essential (primary) hypertension; I73.9 Peripheral vascular disease, unspecified; D64.9 Anemia, unspecified; R23.8 Other skin changes; F17.210 Nicotine dependence, cigarettes, uncomplicated; Z89.612 Acquired absence of left leg above knee; W22.8XXA Striking against or struck by other objects, initial encounter; Z79.02 Long term (current) use of antithrombotics/antiplatelets; Z79.82 Long term (current) use of aspirin; Z87.11 Personal history of peptic ulcer disease; Y92.9 Unspecified place or not applicable